=== PATIENT | male | born 1970 | race Caucasian/White ===

== ENCOUNTER → 2019-07-11 | Emergency (ER) | payer MEDICAID ==
[~2019-07-11] VITALS: Ht 170.2 cm; Wt 75.9 kg
[~2019-07-11] MED LIST: SERT50TA28 PO; SPIR100T4 PO; [UNRECOGNIZED DRUG - OTHER] INJ
--- NOTE | 2019-07-11 14:10 | NUR ---
PT PERFERS TO BE CALLED "CANDY". PT PRESENTED TO ED D/T RIGHT LEG PAIN SINCE LAST NIGHT. SHE STATES THAT PAIN HAS BEEN GETTING INCREASINGLY WORSE SINCE LAST NIGHT. PT CURRENTLY UNDERGOING ESTROGEN THERAPY FOR SEX CHANGE. +N/T TO RIGHT TOES.
--- NOTE | 2019-07-11 14:17 | NUR ---
THIS TECH TRIAGED/ROOMED PT
--- NOTE | 2019-07-11 14:48 | NUR ---
PT SITTING ON [facility] AWAITING US. NO NEEDS AT THIS TIME.
--- NOTE | 2019-07-11 15:18 | NUR ---
US AT BEDSIDE.
--- NOTE | 2019-07-11 16:44 | NUR ---
PT DC HOME IN A STABLE CONDITION. DC INSTRUCTIONS WERE DISCUSSED WITH PT. PT VERBALIZED UNDERSTANDING. PT WAS WHEELED OUT TO WAITING ROOM VIA WC. PT TO CALL FRIEND TO PICK HIM UP.
[2019-07-11 16:45] VITALS: BP 112/74
== END ==
LOC: ED 14:00
DX: M79.661 Pain in right lower leg (principal); F17.200 Nicotine dependence, unspecified, uncomplicated
CPT/HCPCS: 99284

== ENCOUNTER 2020-01-22 19:01 | Emergency (ER) | payer MEDICAID ==
[~2020-01-22] VITALS: Ht 177.8 cm; Wt 75.1 kg
[2020-01-22] MEDS ORDERED: SODIUM CHLORIDE FLUSH 10ML SYR IVF ONE (19:30)
--- NOTE | 2020-01-22 19:30 | NUR ---
TASK RN: PT. AMBULATORY TO ROOM FROM [facility] AT THIS TIME. INSTRUCTED TO PROVIDE URINE SAMPLE AND THEN CHANGE INTO GOWN.
[2020-01-22 19:31] LABS: BASOPHILS % (AUTO) 1 % (0-1); EOSINOPHILS % (AUTO) 1 % (1-7); LYMPHOCYTES % (AUTO) 29 % (22-44); MEAN CORPUSCULAR HEMOGLOBIN 31.6 pg (27.5-34.5); MEAN CORPUSCULAR HGB CONC 33.4 g/dL (33.2-36.2); MEAN PLATELET VOLUME 7.6 fL (7.4-10.4); MONOCYTES % (AUTO) 10 % (2-9); NEUTROPHILS % (AUTO) 60 % (42-75); PLATELET COUNT 274 x10^3/uL (130-400); RED BLOOD COUNT 4.17 x10^6/uL (4.38-5.82)
[2020-01-22 19:35] LABS: MD NO
--- NOTE | 2020-01-22 19:40 | NUR ---
THIS RN AT BEDSIDE TO WITNESS RECTAL EXAM BY ERP.
[2020-01-22 19:41] LABS: ALANINE AMINOTRANSFERASE 20 U/L (12-78); ALBUMIN 3.8 g/dL (3.4-5.0); ANION GAP 3 mmol/L (5-15); CALCIUM 8.8 mg/dL (8.5-10.1); CHLORIDE 108 mmol/L (98-107); CREATININE 0.72 mg/dL (0.7-1.3)
[2020-01-22 19:43] LABS: ALKALINE PHOSPHATASE 61 U/L (45-117); BILIRUBIN,TOTAL 0.4 mg/dL (0.2-1.0); TOTAL PROTEIN 7.1 g/dL (6.4-8.2)
--- NOTE | 2020-01-22 20:23 | NUR ---
PT HAS BEEN TO BATHROOM TWICE IN ATTEMPT TO PROVIDE UA. PT UNABLE TO URINATE. STATES ITS PAINFUL TO BEAR DOWN TO ATTEMPT TO URINATE.
[2020-01-22] MEDS ORDERED: HYDROcodone/APAP 5/325 TABLET PO ONE (20:30)
[2020-01-22] MEDS ORDERED: HYDROcodone/APAP 5/325 TABLET ONE (20:35)
[2020-01-22] MEDS ORDERED: KETOROLAC 30 MG/1 ML ONE (20:46)
[2020-01-22 20:51] VITALS: BP 110/72
--- NOTE | 2020-01-22 20:54 | NUR ---
TASK RN: PT. MEDICATED PER MAR. VS UPDATED.
[2020-01-22] MEDS ORDERED: KETOROLAC 30 MG/1 ML IM ONE (21:00)
== END 2020-01-22 21:17 | disposition home or self-care (01) ==
LOC: ED 21:01
DX: K64.8 Other hemorrhoids (principal)
CPT/HCPCS: 36415; 80053; 85025; 96372; 99284; J1885